=== PATIENT | female | born 1950 | race Caucasian/White ===

== ENCOUNTER 2025-02-01 13:11 | Outpatient (AMB) | payer MEDICARE, SELFPAY ==
--- OUTSIDE RECORDS SUMMARY | 2023-09-10 04:30 | XMS_ITS ---
Author Organization [facility] [place] Address [address] [place] [address] Care Team Providers Care Refinery Operator Helper Name Role Phone Pino ADAMSON, Iraida Primary Care Provider Unavailable Samir Mccauley [phone] Encounters Encounter Location Date Provider Diagnosis [facility] [address] [address] 09/10/2023 Samir Mccauley Plan Of Treatment No Information Progress Notes * Sarah COLLADODOB:1950 (74 yo F)Acc No.[id number]:09/10/2023 Progress Notes Patient: Sarah MCMILLAN Provider: Brad Caruso DPM :1950 A ge:72 Y S ex:Female Date:09/10/2023 Address:[address] [place] [address] Pcp:Iraida Pringle MD Subjective: * Chief Complaints: * * Medical History: Objective: * Vitals: Assessment: Plan: * Treatment: * Images: * The named appointment provid er may or may not be the originator of this progress note, and it is not deemed complete until electronically signed by the appointment provider. Sign off status: Pending * Provider: Brad Caruso DPM Date: 0 09/10/2023 Generated for Debbie beebe/Douglas/Rennyransmitting on: 04/03/2024 04:32 PM EST
--- OUTSIDE RECORDS SUMMARY | 2024-11-30 09:00 | XMS_ITS ---
Author Organization [facility] Address [address] [address] Care Team Providers Care Loss Prevention Investigator Name Role Phone Iraida Pringle Primary Care Provider Un available MOHAN YE Unavailable [phone] REASON FOR VISIT Lt foot bump concern, bump causes discomfort that comes and goes. Encounters Encounter Location Date Provider Diagnosis [facility] [address] [address] 11/30/2024 MOHAN YE Plan Of Treatment No Information Progress Notes * Sarah COLLADODOB:1950 (74 yo F)Acc No.[id number]:11/30/2024 Progress Note Patient: Kody CRAWFORD Sarah Provider: Nohemy Schuler DPM :1950 A ge:74 Y S ex:Female Date:11/30/2024 Phone: Address:[address] [place] [address] [facility] Pcp:Iraida Pringle Subjective: * Chief Complaints: * 1 . Lt foot bump concern, bump causes discomfort that comes and goes.. * Medical History: Objective: * Vitals: Assessment: Plan: * Treatment: * Billing Information: * Visit Code: * Procedure Codes: * Electronic signature of Alvaro PARKERPRajMRaj on 02/01/2025 at 04:32 PM EST Sign off status: Pending * Provider: Nohemy Schuler DPM Date: 0 11/30/2024 Generated for Printi ng/Faxing/eTransmitting on: 1 04/03/2024 04:32 PM EST
--- NOTE | 2025-02-01 13:15 | A.PHYSOV ---
Vital Signs 02/01/25 13:19 Height 5 ft 1 in Weight 145 lb BMI 27.4 Intake Visit Reasons: MRI FUV-SCANNED Intake Note: Patient is a 74 year old female in the office to discuss Lumbar Spine Mri results Field Liability Generalist Required: No Allergies Opioids - Morphine Analogues Allergy (Unknown, Verified 02/01/25 13:16) Unknown sulfamethoxazole Allergy (Unknown, Verified 02/01/25 13:16) Unknown HPI Comments Details: History of Present Illness The patient is a 74-year-old female presenting with lower back pain with radicular symptoms to the right leg and foot. The pain has been persistent and severe, particularly with standing and walking, and has been ongoing since at least 2018 when an MRI showed compression of the right L5 nerve root. She underwent a right L5 transforaminal injection on April 23, 2024, which provided complete pain relief for one month before the pain returned to pre-injection levels. The patient has also engaged in physical therapy with moderate benefit, although the pain persisted. A recent MRI on January 03, 2025, revealed mild to moderate right foraminal and lateral recess stenosis at the L4-L5 level and facet arthropathy at the L5-S1 level. Additionally, the patient experienced a fall on December 22, 2024, resulting in a rib fracture. Interestingly, since the fall, she reports no pain in her lower back, which may be due to the distraction caused by the rib pain or a possible realignment of the joint during the fall. Pain Description - Onset: Persistent since at least 2018 - Quality: Severe, particularly with standing and walking - Location: Lower back with radiation to the right leg and foot - Exacerbating factors: Standing and walking - Relieving factors: Right L5 transforaminal injection provided temporary relief Results - MRI (2018): Compression of the right L5 nerve root - MRI (January 03, 2025): Mild to moderate right foraminal and lateral recess stenosis at L4-L5; Facet arthropathy at L5-S1 [facility] Medical History Cataract (lens) fragments in eye following cataract surgery, bilateral Surgical History History of external ear surgery (Unknown) History of cataract extraction (Unknown) History of pubovaginal sling (Unknown) History of tonsillectomy (Unknown) History of knee replacement (Unknown) History of hysterectomy (Unknown) Social History Household Members: None Alcohol intake: never Patient Tobacco Use Status: Never used Tobacco Use of substances other than those prescribed or required for medical reasons: No Review of Systems Narrative Review of Systems - Musculoskeletal: Reports severe pain with standing and walking; Denies current lower back pain Physical Exam Exam Exam: Physical Exam - Musculoskeletal: Patient was able to stand and walk without difficulty Nonantalgic gait. Tenderness with palpation over right SI sulcus. Neurological examination lower extremities was nonfocal. Patient demonstrated an upper motor neuron signs. The site provocative maneuvers were negative today. Dural tension signs were negative. She was able to perform heel walk and toe walk. Vital Signs: BMI result Body Mass Index 27.4 Assessment & Plan Assessment & Plan (1) Lumbar radiculitis: Code(s): M54.16 - Radiculopathy, lumbar region Category: Medical (2) Sacroiliac dysfunction: Code(s): M53.3 - Sacrococcygeal disorders, not elsewhere classified Category: Medical Plan Pain Management - Affect: Pain impacts standing and walking ability - Analgesia: Right L5 transforaminal injection provided 100% pain relief for one month - Activities of Daily Living: Pain interferes with standing and walking Plan Patient was informed and verbally consented to the use of an ambient scribe for clinic note documentation during this visit. 1. Lower Back Pain With Radicular Symptoms The patient's lower back pain with radicular symptoms has been managed with right L5 transforaminal injections, which provided temporary relief. The recent MRI findings of mild to moderate right foraminal and lateral recess stenosis at L4-L5 and facet arthropathy at L5-S1 were discussed, and no further immediate interventions were deemed necessary as the patient currently reports no pain. We could consider sacroiliac joint injections in the future if necessary. It appears that she self corrected SI joint dysfunction with the fall. 2. Rib Fracture The rib fracture sustained from a fall on December 22, 2024, is expected to heal with time, and no specific treatment was recommended beyond monitoring for pain management. Discussion Notes The MRI results were reviewed with the patient, highlighting the findings of mild to moderate right foraminal and lateral recess stenosis at L4-L5 and facet arthropathy at L5-S1. It was explained that the current lack of pain might be due to the rib fracture acting as a distraction or a possible realignment of the joint during the fall. The patient was advised that no further immediate interventions are necessary, and the rib fracture should heal with time. Patient Instructions - Monitor rib pain and seek care if it worsens or does not improve. - No need for immediate follow-up unless symptoms return. Coding Level of Care Code Est Pt Level 3 (63268) Complex EM visit Add On G2211 Diagnoses Lumbar radiculitis M54.16 Sacroiliac dysfunction M53.3
[2025-02-01 13:19] VITALS: BMI 27.4
--- OUTSIDE RECORDS SUMMARY | 2025-02-01 16:32 | XMS_ITS | Patient Health Record ---
Author Organization [facility] Address [address] [place] [address] Care Team Providers Care Diamond Sawer Name Role Phone Pino ADAMSON, Iraida Primary Care Provider Unavailable Samir Mccauley Unavailable [phone] Reason For Referral No Information Plan Of Treatment No Information Insurance Providers Payer Name Payer Address Payer Phone Subscriber Number Group Number Insured Name Patient Relationship to Insured Coverage Start Date Coverage End Date Medicare [facility] [address] [place] [address] [id number] Sarah Lindo Self - patient is the insured [facility] [address] [place] [address] [id number] Sarah Lindo Self - patient is the insured
--- OUTSIDE RECORDS SUMMARY | 2025-02-01 16:32 | XMS_ITS | Patient Health Record ---
Author Organization [facility] Address [address] [facility] [address] [place] [address] Care Team Providers Care Ad Compositor Name Role Phone GarcíaIraida Ball Primary Care Provider Un available MOHAN YE Unavailable [phone] Allergies Allergen (clinical drug ingredient) Drug/Non Drug Allergy documented on EMR Reaction Allergy Type Onset Date Status sulfamethoxazole Sulfamethoxazole Unknown Drug Allergy Active morphine Morphine Unknown Drug Allergy Active Reason For Referral No Information Medications Medication SIG (Take, Route, Frequency, Duration) Notes Start Date End Date Status Atorvastatin Calcium 20 MG 1 tablet Orally Once a day Active amLODIPine Besylate 10 MG 1 tablet Orally Once a day Active Aspirin 81 MG 1 tablet Orally Once a day Active Alendronate Sodium 70 MG 1 tablet 30 minutes before the first food, beverage or medicine of the day with plain water Orally once a week Not-Taking Myrbetriq 25 MG 1 tablet Orally Once a day Active Multivitamin - 1 tablet Orally Once a day Active Fluticasone Propionate 50 MCG/ACT 1 spray in each nostril Nasally Once a day PRN Active CoQ10 100 MG as directed Orally Active Citracal Calcium+D A ctive buPROPion HCl ER (SR) 150 MG 1 tablet in the morning Orally Once a day Not-Taking Vitamin D3 125 MCG (5000 UT) 1 capsule Orally Once a day Active Tylenol Extra Strength 500 MG 1 tablet as needed Orally every 6 hrs Not-Taking Triamcinolone Acetonide 0.1 % 1 application Externally Two times a Week PRN Active Naproxen 500 MG 1 tablet with food or milk as needed Orally every 12 hrs Not-Taking Omeprazole 20 MG 1 capsule 30 minutes before morning meal Orally Once a day Active Problems Problem Type SNOMED Code ICD Code Onset Dates Problem Status W/U Status Risk Notes Problem Mononeuropathy of lower limb (522701991) Peripheral neuritis of right foot (G57.91) Active confirmed Problem Localized, primary osteoarthritis of the ankle and/or foot (114537542) 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) Active confirmed Vital Signs Heart Rate 74 /min 12/25/2024 Temperature 96.6 degrees Fahrenheit 12/25/2024 Respiratory Rate 16 /min 12/25/2024 Height 5ft 2in in 12/25/2024 Weight 149.4 lbs 12/25/2024 BMI 27.32 kg/m2 12/25/2024 Encounters Encounter Location Date Provider Diagnosis [facility] [address] [address] 12/25/2024 MOHAN YE Arthritis of left midfoot M19.072 and Left foot pain M79.672 [facility] [address] [address] 11/28/2024 MOHAN YE Assessments Encounter Date Diagnosis (ICD Code) Assessment Notes Treatment Notes Treatment Clinical Notes Section Notes 12/25/2024 Left foot pain (ICD-10 - M79.672) 12/25/2024 Arthritis of left midfoot (ICD-10 - M19.072) Patient examined and evaluated. Past medical history reviewed. She has been having dorsal lateral left foot pain intermittently. She brings her CT disc in that she had done recently at [facility]. This does show degenerative changes at the 4th and 5th TMTJ area and questionable old anterior process calcaneal fracture. I discussed with her the changes and options of treatment. We discussed voltaren gel to the area twice a day, oral NSAIDs, corticosteroid injections and stiff soled shoe gear. I went over what to look for in a shoe that would be better supportive. I also encouraged icing and heat on and off. She expressed understanding and will start with voltaren and shoe gear changes. She will let me know if the pain persists or worsens in the future. Plan Of Treatment Pending Test Test Name Order Date X ray : Foot, left 3v 10/20/2023 X ray : Foot, right 3v 06/29/2023 Insurance Providers Payer Name Payer Address Payer Phone Subscriber Number Group Number Insured Name Patient Relationship to Insured Coverage Start Date Coverage End Date [employer] of [place] [address] [place] [phone] [id number] Sarah Lindo Self - patient is the insured [facility] [address] [place] [address] [phone] [id number] Sarah Lindo Self - patient is the insured Medical (General) History Medical History History ICD Code chronic depression migraine osteoporosis stress incontinence esophagitis spondylosis hypertension hypercholesterolemia stricture of esophagus overactive bladder osteoarthritis of knee basal cell carcinoma on her nose + COVID 2020 COVID vaccinated X 3 ([employer]) Lower back pain with right sciatica Surgical History Surgery Date(Month/Year) mid urethral sling 2013 stapes surgery 2004 tonsillectomy total hysterectomy left knee arthroscopy left knee replacement right ear surgery Hospitalization History Reason Date(Month/Year) vaginal delivery (boy) 1972 total hysterectomy
--- OUTSIDE RECORDS SUMMARY | 2025-02-01 16:32 | XMS_ITS | Data Portability ---
Author Organization [place] - [facility], Allergy Address [address] [place] [phone] Care Team Providers Care Line Up Machine Operator Name Role Phone ADRIANA TAMAYO Referring Provider Assessment Encounter Date Assessment Date Assessment LastModified by Organization Details LastModified Time 02/22/2024 02/22/2024 73-year-old female presents for evaluation of hearing loss. Cerumen removed bilaterally without difficulty. Otologic exam is unremarkable. Audiometric testing obtained today showing mild high-frequency sensorineural hearing loss bilaterally which is symmetrical. This is stable when compared to results obtained after surgery. Results were reviewed with patient and reassurance was provided. Likely related to cerumen impaction. Offered 6 months follow-up for cerumen removal but she declined stating she will call if she has any further difficulty. All questions were answered. [email or web address] Not available 02/22/2024 12:28:17 Plan of Treatment Reminders Order Date Submit Date Provider Last Modified By Organization Details Last Modified Time Details Appointments None record ed. Lab None record ed. Referral None record ed. Procedures None record ed. Surgeries None record ed. Imaging None record ed. Medication Orders None record ed. Patient TargetsNo targets recorded. Patient InstructionsNo instructions recorded. Reason for Referral None Reported. Results Created Date Observation Date Name Description Value Unit Range Abnormal Flag Note LastModifiedBy Organization Detail LastModifiedTime 02/22/20 24 audio gram No observ ation record ed. BARCODE Not Available 2023 13:49:01 Result Notes None recorded. Problems Name Problem SNOMED Code Status Onset Date Resolution Date Notes Provider Name and Address Organization Details Recorded Time Hypertro phy of nasal turbinat es 39578000 Active 2017 Hypertro phy of nasal turbinat es; Note: Date Diagnose d: 8 9:39 AM (J34.3) Not Available [facility] 4 02:47:56 Choleste atoma of right mastoid [id number] 14951 Completed 201710/22/2023 Choleste atoma of mastoid, right ear; Note: Date Diagnose d: 8 10:36 AM (H71.21) Not Available [facility] 4 02:47:53 Sensorin eural hearing loss of bilatera l ears 176026634 Active 2017 Sensorin eural hearing loss, bilatera l; Note: Date Diagnose d: 8 10:04 AM (H90.3) Not Available [facility] 4 02:47:55 Posterio r rhinorrh ea 69254482 Active 2017 Postnasa l drip; Note: Date Diagnose d: 8 9:35 AM (R09.82) Not Available [facility] 4 02:47:53 Partial loss of ear ossicles 06582993 Active 2017 Partial loss of ear ossicles , right ear; Note: Date Diagnose d: 8 10:37 AM (H74.321 ) Not Available [facility] 4 02:47:54 Vuong' s esophagu s 056822921 Active 2017 Vuong' s esophagu s NOS; Note: Date Diagnose d: 8 9:39 AM (K22.70) Not Available [facility] 4 02:47:52 Allergic rhinitis 41239359 Active 2017 Allergic rhinitis : Due to other allergen ; Note: Date Diagnose d: 8 9:28 AM (477.8) ; Start Date : 12/25/19 18 Peren nial allergic rhinitis ; Note: Date Diagnose d: 01/07/20 18 8:41 AM (J30.89) Not Available [facility] 4 02:47:54 Impacted cerumen of bilatera l ears 83810979176 70263 Active 2023 JANICE STEWARD PA-C [address] [facility],[place] [address], [place], [phone] , [facility] - [facility] 4 12:28:27 Problem Notes None recorded. Procedures Surgical History Date Name Laterality Status Provider Name and Address Organization Details Recorded Time 4 Air & Speech Audio with Tymps - 42036, 65925 & 76997 completed RAYO CORADO [address] [facility],[place] [address], [place], [phone], [facility] 02/22/2024 11:52:35 4 Cerumen removal without microscope bilat completed JANICE STEWARD PA-C [address] [facility],[place] [address], [place], [phone], [facility] 02/22/2024 12:27:32 Imaging Results None recorded. Procedure Notes None recorded. Medical Equipment None Reported. Allergies Allergen ID Allergen Name Allergen Category Reaction Reaction Severity Criticality Documentation Date Start Date Code Code System Note Provider Name and Address Organization Details Recorded Time 994834 morphine medicatio n nausea Not available Not available 08/03/2023 7052 RxNorm React ion: vomit ing;; Not Available [facility] 4 01:13:30 886408 sulfur medicatio n hives Not available Not available 08/03/2023 95065 RxNorm React ion: other react ion, Hives ; Not Available [facility] 4 01:13:31 Medications Name Sig Start Date Stop Date Status Note LastModified by Organization Details LastModified Time amoxicill in 500 mg capsule TAKE 4 CAPSULES BY MOUTH 1 HOUR PRIOR TO DENTAL APPT active Not Available Not Available No t Available bupropion HCl SR 150 mg tablet,12 hr sustained -release TAKE 1 TABLET BY MOUTH TWICE A DAY 02/21 completed Not Available Not Available Not Available acetamino phen 325 mg tablet TAKE 2 TABLETS BY MOUTH EVERY 6 HOURS NEEDED FOR PAIN FOR 14 DAYS 02/21 completed Not Available Not Available Not Available atorvasta tin 20 mg tablet TAKE 1 TABLET BY MOUTH EVERY DAY active Not Available Not Available No t Available prednison e 20 mg tablet TAKE 1 TABLET BY MOUTH EVERY DAY FOR 3 DAYS 02/21 completed Not Available Not Available Not Available alendrona te 70 mg tablet TAKE 1 TABLET BY MOUTH ONE TIME PER WEEK active Not Available Not Available No t Available amlodipin e 10 mg tablet TAKE 1 TABLET BY MOUTH EVERY DAY active Not Available Not Available No t Available benzonata te 100 mg capsule TAKE 1 CAPSULE BY MOUTH 3 TIMES PER DAY (COUGH) FOR 5 DAYS 02/21 completed Not Available Not Available Not Available doxycycli ne monohydra te 100 mg capsule TAKE 2 CAPSULE (ORAL) DAILY FOR 1 DAYS 02/21 completed Not Available Not Available Not Available omeprazol e 20 mg capsule,d elayed release TAKE 1 CAPSULE BY MOUTH EVERY DAY active Not Available Not Available No t Available ibuprofen 600 mg tablet TAKE 1 TABLET BY MOUTH EVERY 6 HOURS NEEDED FOR PAIN FOR 14 DAYS 02/21 completed Not Available Not Available Not Available multivita min capsule 2017 active Medicati on ID: [id number] B rand Name: multivit rodriguez Sen d Method: E-Prescr ibed Sub s Allowed: subs OK Medic ationGen ericName : multivit rodriguez Not Available Not Available Not Available fluticaso ne propionat e 50 mcg/actua tion nasal spray,luigi pension INHALE 1 SPRAY INTO EACH NOSTRIL ONCE DAILY FOR 90 DAYS active Not Available Not Available No t Available doxycycli ne hyclate 100 mg tablet TAKE 1 TABLET (ORAL) 2 TIMES PER DAY FOR 10 DAYS LIMITS SUN EXPOSURE WHILE ON THIS ANTIBIOT IC 02/21 completed Not Available Not Available Not Available amoxicill in 875 mg-potass ium clavulana te 125 mg tablet TAKE 1 TABLET BY MOUTH TWICE A DAY FOR 10 DAYS 02/21 completed Not Available Not Available Not Available oxycodone 5 mg tablet TAKE 1 TABLET (5 MG) BY MOUTH EVERY 6 HOURS FOR 3 DAYS NEEDED FOR PAIN 02/21 completed Not Available Not Available Not Available escitalop aaron 10 mg tablet TAKE 1 TABLET BY MOUTH EVERY DAY active Not Available Not Available No t Available Saline Nasal 0.65 % spray aerosol USE 2 SPRAYS IN LEFT NOSTRIL 4 TIMES A DAY FOR 30 DAYS NEEDED FOR CONGESTI ON active Not Available Not Available No t Available Vitamin D3 25 mcg (1,000 unit) capsule 2017 active Medicati on ID: [id number] B rand Name: Vitamin D3 Send Method: E-Prescr ibed Sub s Allowed: subs OK Medic ationGen ericName : Vitamin D3 Not Available Not Available Not Available EpiPen 0.3 mg/0.3 mL injection , auto-inje ctor Inject 1 pen injector intramus cularly single dose as needed 02/21 completed Medicati on ID: [id number] D uration Value: 180 Prescri bed By Name: Pedro Yadav nd Name: EpiPen S end Method: E-Prescr ibed Sub s Allowed: subs OK Medic ationGen ericName : EpiPen Not Available Not Available Not Available Active Q 200 mg capsule 12/24 completed Medicati on ID: [id number] R carmela: () Brand Name: Active Q Send Method: E-Prescr ibed Sub s Allowed: subs OK Medic ationGen ericName : Active Q Not Available Not Available Not Available Citracal Plus Bone Density Builder 300 mg-200 unit-13.5 mg tablet 2017 active Medicati on ID: [id number] B rand Name: Citracal + Bone Density Send Method: E-Prescr ibed Sub s Allowed: subs OK Medic ationGen ericName : Citracal + Bone Density Not Available Not Available Not Available Myrbetriq 25 mg tablet,ex tended release TAKE 1 TABLET BY MOUTH EVERY DAY active Not Available Not Available No t Available Vitals Date Recorded Body height Body mass index (BMI) Body weight Provider Name and Address Organization Details Last Updated DateTime 02/22/2024 153.67 cm 29.4 kg/m2 39141.63 g Donna Ward [place] - [facility] 02/22/2024 11:40:00 Social History None recorded. Functional Status None recorded. Mental Status None recorded. Family History Nothing Reported. Medical History Condition Response Cancer Y Anxiety Y Hypertension Y Depression Y Gynecological HistoryNo gynecological history recorded. Obstetrics History GPAL:G 0 P 0 0 0 0 Past Encounters Encounter ID Performer Location Encounter Start Date Encounter Closed Date Diagnosis/Indication Diagnosis SNOMED-CT Code Diagnosis ICD10 Code Diagnosis IMO Codes Diagnosis Note [id number] DALJIT ATWOOD PA-C [facility] [address] [place] [address] 02/22/2024 10:59:13 02/22/2024 15:07:51 Partial loss of ear ossicles 03009920 H74.321 Sensorineu ral hearing loss of bilateral ears 871989679 H90.3 Impacted c erumen of bilateral ears 5829073163 392617 H61.23 [id number] RAYO CORADO [facility] [address] [place] [address] 02/22/2024 11:50:58 02/23/2024 07:20:25 Sensorineural hearing loss of bilateral ears 419238755 H90.3 Right Ear:Normal hearing through 3K Hz sloping to a moderate SNHL with excellent speech discrimina tion.Type A tympanogra m.Left Ear:Normal hearing through 4K Hz sloping to a moderate SNHL with excellent speech discrimina tion.Type A tympanogra m. Health Concerns Section Related Observation LastModified by Organization Detai ls LastModified Time None Recorded Concern Status LastModified by Organization Details LastModified Time None Recorded Advance Directives Directive None Recorded Payers Insurance Date Sequence Insurance Name Policy Number Policy Choe Covered Member ID Choe Member ID Guarantor Name 02/22/2024 1 [place]: [employer] Sarah A Belgica [id number] Sarah A Belgica 02/22/2024 2 [facility] INDEMNITY PLAN (INDEMNITY) [id number] Sarah D Belgica [id number] Sarah A Belgica Notes Date Note Type Note Provider Name and Address Organization Details Recorded Time 02/22/2024 text/html ROS as noted in the HPI 73-year-old female presents for evaluation of hearing loss. History of stapes surgery with Dr. Russell. Has had some progressive hearing loss over the last year. JANICE STEWARD PA-C [address] [place] [address], [phone], [facility] - [facility] 02/22/2024 12:28:50 OBGyn Episode No OBEpisode recorded.
--- OUTSIDE RECORDS SUMMARY | 2025-02-01 16:32 | XMS_ITS | Data Portability ---
Author Organization [facility], OFFICE Address [address] [address] Assessment Encounter Date Assessment Date Assessment LastModified by Organization Details LastModified Time 10/06/2021 10/06/2021 We discussed the issues concerning Sarah's left knee. She had medial compartment arthrosis and her symptoms have not been appreciably improved by therapy, injections or arthroscopy. Arthroplasty is appropriate. Although her most advanced changes are in the medial compartment, I'd favor TKR vs unicompartmental arthroplasty. We discussed the issues related to that in a lot of detail today including the preoperative process, the operative techniques, less-invasive techniques, computer-assisted techniques, the types of implants, and the perioperative risks. In addition, we discussed the typical hospitalization course following surgery and reasonable expectations for recovery, outcome, activity level, and long-term followup This visit was conducted as a real-time telehealth interactive video visit during this ongoing pandemic. She was identified and consented to this telehealth visit. I spent a total of 25 minutes during this encounter. Greater than 50% of the time was devoted to counseling and coordinating care. This included reviewing records and pertinent studies, discussing diagnostic evaluation and workup, planning therapeutic interventions, and formulating the future disposition of care. sbm Not available 10/06/2021 11:43:54 03/02/2022 03/02/2022 Sarah is progressing well following elective LTKR. She's going to continue to progress to all reasonable activities as tolerated. This visit was conducted as a real-time telehealth interactive video visit during this ongoing pandemic. She was identified and consented to this telehealth visit. I spent a total of 15 minutes during this encounter. Greater than 50% of the time was devoted to counseling and coordinating care. This included reviewing records and pertinent studies, discussing diagnostic evaluation and workup, planning therapeutic interventions, and formulating the future disposition of care. sbm Not available 03/02/2022 16:06:57 06/10/2022 06/10/2022 Sarah is improvi ng but hasn't fully recovered. She still has symptoms. Her exam is not concerning. Her incision healed well, she has full extension, 118 degrees of flexion, stable ligaments and good patellofemoral tracking. Since she is improving, I expect that she'll continue to. Even so, I've recommended a CBC,ESR, CRP. We'll determine further treatment based on her clinical progress and lab results. sbm Not available 06/10/2022 15:08:14 Plan of Treatment Reminders Order Date Submit Date Provider Last Modified By Organization Details Last Modified Time Details Appointments None record ed. Lab None record ed. Referral None record ed. Procedures None record ed. Surgeries None record ed. Imaging None record ed. Medication Orders None record ed. Patient TargetsNo targets recorded. Patient InstructionsNo instructions recorded. Reason for Referral None Reported. Problems No Known Problems Procedures Surgical History Date Name Laterality Status Provider Name and Address Organization Details Recorded Time procedure on ear completed Jorge Alberto Pavon MD [address], [place], [address], [place] - [facility] 10/06/2021 11:39:35 Hysterectomy completed Jorge Alberto Pavon MD [address], [place], [address], [place] - [facility] 10/06/2021 11:39:46 Knee arthroscopy/surge ry completed Jorge Alberto Pavon MD [address], [place], [address], [place] - [facility] 10/06/2021 11:41:12 total replacement of left knee joint completed Jorge Alberto Pavon MD [address], [place], [address], [place] - [facility] 03/02/2022 16:01:43 Imaging Results None recorded. Procedure Notes None recorded. Medical Equipment None Reported. Allergies Allergen ID Allergen Name Allergen Category Reaction Reaction Severity Criticality Documentation Date Start Date Code Code System Note Provider Name and Address Organization Details Recorded Time 48579 morphine medicatio n Not available Not available Not available 10/02/2021 7052 RxNorm Donna Watkins stefan, [place] - [facility] 2 10:30:52 79991 Substance with sulfonami de structure and antibacte rial mechanism of action (substanc e) medicatio n Not available Not available Not available 10/02/2021 38517 8003 SNOMED Donna Watkins stefan [place] - [facility] 2 10:31:00 Medications Name Sig Start Date Stop Date Status Note LastModified by Organization Details LastModified Time celecoxib 200 mg capsule PLEASE SEE ATTACHED FOR DETAILED DIRECTIONS active Not Available Not Available N ot Available atorvastatin 20 mg tablet TAKE 1 TABLET BY MOUTH EVERY DAY active Not Available Not Available No t Available erythromycin 500 mg tablet TAKE 2 TABLET 1HR PRIOR TO DENTAL WORK active Not Available Not Available Not Available benzonatate 200 mg capsule TAKE 1 CAPSULE BY MOUTH THREE TIMES A DAY NEEDED active Not Available Not Available No t Available ondansetron HCl 4 mg tablet TAKE 2 TABLET(S) 2 TIMES A DAY BY ORAL ROUTE. NEEDED FOR NAUSEA active Not Available Not Available No t Available prednisone 20 mg tablet TAKE 2 TABLETS BY MOUTH EVERY DAY FOR 5 DAYS active Not Available Not Available No t Available alendronate 70 mg tablet TAKE 1 TABLET BY MOUTH ONE TIME PER WEEK active Not Available Not Available No t Available amlodipine 2.5 mg tablet TAKE 1 TABLET BY MOUTH EVERY DAY active Not Available Not Available No t Available amlodipine 5 mg tablet TAKE 1 TABLET BY MOUTH EVERY DAY active Not Available Not Available No t Available triamcinolon e acetonide 0.1 % topical cream APPLY TWICE DAILY, NEEDED TO DERMATITIS ON LEGS active Not Available Not Available No t Available amoxicillin 875 mg tablet TAKE 1 TABLET BY MOUTH EVERY 12 HOURS FOR 7 DAYS active Not Available Not Available N ot Available amlodipine 10 mg tablet TAKE 1 TABLET BY MOUTH EVERY DAY active Not Available Not Available No t Available albuterol sulfate HFA 90 mcg/actuatio n aerosol inhaler INHALE 2 PUFFS EVERY 4 HOURS BY INHALATION ROUTE NEEDED active Not Available Not Available No t Available betamethason e dipropionate 0.05 % topical ointment APPLY A THIN LAYER TO THE AFFECTED AREA(S) BY TOPICAL ROUTE TWICE DAILY UNTIL CLEAR active Not Available Not Available No t Available naproxen 500 mg tablet TAKE 1 TABLET BY MOUTH TWICE A DAY 2022 active Not Available Not Available Not Avai lable oxycodone 5 mg tablet TAKE 1 TABLET BY MOUTH EVERY 8 HOURS active Not Available Not Available No t Available GaviLyte-G 236 gram-22.74 gram-6.74 gram-5.86 gram oral solution TAKE 4000 ML DIRECTED FOLLOW INSTRUCTION S PROVIDED TO YOU BY DOCTORS OFFICE active Not Available Not Available No t Available Eliquis 2.5 mg tablet Take 1 tablet(s) 2 TIMES A DAY by oral route for 30 days after surgery 2022 active Not Available Not Available Not Avai lable QuickVue At-Home COVID-19 Test kit USE ACCORDING TO CHEMA S DIRECTIONS active Not Available Not Available N ot Available Paxlovid 300 mg (150 mg x 2)-100 mg tablets in a dose pack TAKE 3 TABLETS BY MOUTH TWICE A DAY FOR 5 DAYS active Not Available Not Available No t Available Vitals Date Recorded Body height Body mass index (BMI) Body weight Systolic And Diastolic Provider Name and Address Organization Details Last Updated DateTime 06/10/2022 154.94 cm 26.5 kg/m2 91913.93 g 142/78 mm[Hg] Donna Watkins [place] - [facility] 06/10/2022 14:38:52 Date Recorded Body height Body mass index (BMI) Body weight Provider Name and Address Organization Details Last Updated DateTime 10/06/2021 154.94 cm 26.8 kg/m2 92153.12 g Donna Watkins [place] - [facility] 10/06/2021 07:06:26 Date Recorded Body height Body mass index (BMI) Body weight Provider Name and Address Organization Details Last Updated DateTime 03/02/2022 154.94 cm 25.5 kg/m2 28036.97 g Donna Watkins [place] - [facility] 03/02/2022 10:44:28 Social History Question Answer Notes LastModified by Organizat ion Details LastModified Time Tobacco Smoking Status Never Smoker Donna aviles [place] - [facility] 10/02/2021 10:33:03 Do You Have An Advance Directive? No [email or web address] Information not available 03/02/2022 Do You Have A Medical Power Of Spinner Fixer? No [email or web address] Information not available 03/02/2022 What Was The Date Of Your Most Recent Tobacco Screening? 03/02/2022 [email or web address] Information not available 03/02/2022 Has Tobacco Cessation Counseling Been Provided? No [email or web address] Information not available 03/02/2022 Sex: Unknown Functional Status Question Answer Note LastModified by Organization D etails LastModified Time Do you or have you ever used any other forms of tobacco or nicotine? No Information not available 10/02/2021 Are you able to care for yourself independently? Yes [email or web address] Information not available 10/02/2021 Mental Status None recorded. Family History Relationship Description Onset Age of this Age Resolved Age Notes LastModified by Organization Details LastModified Time Father Coronary arterioscler osis [email or web address] Not available 2021 11:37:33 Mother Malignant neoplasm of colon sbm Not available 2021 11:38:03 Medical History Condition Response Arthritis Y Hypertension Y High Cholesterol Y Gynecological HistoryNo gynecological history recorded. Obstetrics History GPAL:G 0 P 0 0 0 0 Past Encounters Encounter ID Performer Location Encounter Start Date Encounter Closed Date Diagnosis/Indication Diagnosis SNOMED-CT Code Diagnosis ICD10 Code Diagnosis IMO Codes Diagnosis Note [id number] Jorge Alberto Pavon MD [facility] [address] [place] [address] 10/06/2021 07:05:06 10/06/2021 22:03:02 [id number] Jorge Alberto Pavon MD [facility] [address] [place] [address] 03/02/2022 10:42:45 03/04/2022 12:35:02 [id number] Jorge Alber[facility] Pav[facility] MD OFFICE [facility] [address] [place] [phone] 06/10/2022 14:33:25 06/10/2022 20:39:51 Health Concerns Section Related Observation LastModified by Organization Detai ls LastModified Time None Recorded Concern Status LastModified by Organization Details LastModified Time None Recorded Advance Directives Directive N: Payers Insurance Date Sequence Insurance Name Policy Number Policy Choe Covered Member ID Choe Member ID Guarantor Name 06/07/2022 1 [place] [employer] Sarahlupillo Espinosao [id number] 2 Sarah Belgica 06/10/2022 2 UNICARE - SENIOR SERVICES PLAN F (MEDICARE SUPPLEMENT) [id number] Sarah Hal Espinosao [id number] Sarah Belgica 06/07/2022 [place] NATIONAL GOVERNMENT SERVICES Sarahlupillo Espinosao [id number] 2 Sarah Belgica Notes Date Note Type Note Provider Name and Address Organization Details Recorded Time 10/06/2021 text/html KneeReported by PatientHPIFor location, patient reportsleft,medial, anddeep. For severity, patient reportsmoderate. For alleviating factors, patient reportsrest. For aggravating factors, patient reportswalking,weig ht bearing,going from sit to stand,upstairs, anddownstairs. For associated symptoms, patient reportsno weakness,no numbness,no tingling,no swelling,no redness,no warmth,no ecchymosis,no catching/locking,no popping/clicking,no buckling,no grinding,no instability,no radiation down leg,no drainage,no fever,no chills,no weight loss, andno change in bowel/bladder habits. For previous injections, patient reportshelped temporarily. For previous pt, patient reportsdid not help. For previous surgery, (knee arthroscopy. didn't help).ROS as noted in the HPI Jorge Alberto Pavon MD [address] [place] [address], [phone], [place] - [facility] 10/06/2021 11:43:57 03/02/2022 text/html KneeReported by PatientHPIFor location, patient reportsleftanddeep. For severity, patient reportsmoderate. For alleviating factors, patient reportsiceandrest. For aggravating factors, patient reportsexercise. For associated symptoms, patient reportsno weakness,no numbness,no tingling,no swelling,no redness,no warmth,no ecchymosis,no catching/locking,no popping/clicking,no buckling,no grinding,no instability,no radiation down leg,no drainage,no fever,no chills,no weight loss, andno change in bowel/bladder habits. For prior imaging, patient reportsx rayandmri. For previous pt, patient reportshelped significantly.ROS as noted in the [facility] Jorge Alberto Pavon MD [address], [place], [address], [place] - [facility] 03/02/2022 16:07:01 06/10/2022 text/html KneeReported by PatientHPIFor location, patient reportsleftanddeep. For severity, patient reportsmild. For alleviating factors, patient reportsiceandrest. For aggravating factors, patient reportsexercise. For associated symptoms, patient reportsno weakness,no numbness,no tingling,no swelling,no redness,no warmth,no ecchymosis,no catching/locking,no popping/clicking,no buckling,no grinding,no instability,no radiation down leg,no drainage,no fever,no chills,no weight loss, andno change in bowel/bladder habits. For prior imaging, patient reportsx rayandmri.ROS as noted in the [facility] Jorge Alberto Pavon MD [address], [place], [address], [place] - [facility] 06/10/2022 15:08:17 OBGyn Episode No OBEpisode recorded.
--- OUTSIDE RECORDS SUMMARY | 2025-02-01 16:32 | XMS_ITS | Clinical Summary ---
Author Organization [facility] [address] [facility] Address [address] [place] [address] Phone Care Team Providers Care Timber Supervisor Name Role Phone Iraida Pringle MD Primary Care Provid er Allergies Active Allergy Reactions Criticality Noted Date Comments Morphine Nausea Only,Nausea A nd Vomiting 11/01/2024 morphine Sulfa (Sulfonamide Antibiotics) Hives 11/01/2024 Medications alendronate (FOSAMAX) 70 mg tablet Take 1 tablet (70 mg total) by mouth 1 (one) time per week. 06/09/2024 Active amLODIPine (NORVASC) 5 mg tablet Take 1 tablet (5 mg total) by mouth 1 (one) time each day. 10/18/2024 Active amoxicillin (AMOXIL) 500 mg capsule TAKE 4 CAPS BY MOUTH PRIOR TO DENTAL WORK 06/12/2024 Active aspirin 81 mg EC tablet Take 1 tablet (81 mg total) by mouth 1 (one) time each day. 09/14/2024 Active atorvastatin (LIPITOR) 40 mg tablet Take 1 tablet (40 mg total) by mouth 1 (one) time each day. 10/18/2024 Active DULoxetine (CYMBALTA) [address] capsule Take 1 capsule (30 mg total) by mouth 1 (one) time each day. 05/22/2024 Active fluticasone propionate (FLONASE) 50 mcg/actuation nasal spray INHALE 1 SPRAY INTO EACH NOSTRIL ONCE DAILY FOR 90 DAYS 01/29/2024 Active losartan (COZAAR) 50 mg tablet Take 1 tablet (50 mg total) by mouth 1 (one) time each day. 10/18/2024 Active meloxicam (MOBIC) 15 mg tablet Take 1 tablet (15 mg total) by mouth 1 (one) time each day if needed. 10/26/2024 Active Myrbetriq 50 mg 24 hr tablet Take 1 tablet (50 mg total) by mouth 1 (one) time each day. 09/28/2024 Active escitalopram (LEXAPRO) 10 mg tablet Take 1 tablet (10 mg total) by mouth 1 (one) time each day. 12/24/2023 Active omeprazole (PriLOSEC) 20 mg capsuleIndestefany ns:Gastroesophag eal reflux disease without esophagitis Take 1 capsule (20 mg total) by mouth 1 (one) time each day. 90 each 3 11/01/2024 11/02/19 26 Active Active Problems Problem Noted Date Diagnosed Date Gastroesophageal reflux dise ase with esophagitis without hemorrhage 11/01/2024 Osteoporosis 11/01/2024 HTN (hypertension) 11/01/2024 Esophageal stricture 11/01/2024 Allergies 11/01/2024 Basal cell carcinoma 11/01/2024 Migraines 11/01/2024 Encounters Date Type Department Care Team Description 11/01/2024 2:40 PM EDT Office Visit Gastroenterology - [address] [facility] [address] [place] [phone] Tino Nichols PA Esophageal dysphagia (Primary Dx); Gastroesophageal reflux disease without esophagitis from Last 3 Months Surgical History Surgery Date Site/Laterality Comments TOTAL KNEE ARTHROPLASTY 03/22/2021 - 03/21/2022 Left HYSTERECTOMY COLONOSCOPY 07/20/2022 - 08/19/2022 (5yr)/hx polyps & fam hx CRC (Dr. Connolly) ESOPHAGOGASTRODUODENOSCOPY 05/20/2017 - 06/19/2017 esoph stricture dilated/no heme, grade A esophagitis - Dr. Connolly ESOPHAGOGASTRODUODENOSCOPY 07/20/2018 - 08/19/2018 ? 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 Connolly Family History Medical History Relation Name Comments Colon cancer Mother Relation Name Status Comments Mother Social History Tobacco Use Types Packs/Day Years Used Date Smoking Tobacco: Never Assessed Smokeless Tobacco: Never Tobacco Cessation:Counseling Given: No Comments Unknown Sex and Gender Information Value Date Recorded Sex Assigned at Female 09/12/2024 3:09 PM EDT Legal Sex Female 8:27 PM EST Gender Identity Female 09/12/2024 3:09 PM EDT Sexual Orientation Not on file Obstetrics History Last Filed Vital Signs Vital Sign Reading Time Taken Comments Blood Pressure - - Pulse 92 11/01/2024 2:33 PM EDT Temperature - - Respiratory Rate - - Oxygen Saturation 93% 11/01/2024 2:33 PM EDT Inhaled Oxygen Concentration - - Weight 68.8 kg (151 lb 9.6 oz) 11/01/2024 2:33 P M EDT Height 154.9 cm (5' 1 ) 11/01/2024 2:33 PM EDT Body Mass Index 28.64 11/01/2024 2:33 PM EDT Plan of Treatment Health Maintenance Due Date Last Done Comments DTaP,Tdap,and Td Vaccines (1 - Tdap) 09/12/1967 Pneumococcal Vaccine: 50+ Ye ars (1 of 1 - PCV) 1998 Zoster Vaccines (1 of 2) 1998 Cholesterol Screening (Lipid Panel) 04/16/2023 Falls Risk Assessment 04/16/2023 Hepatitis C Screening 04/16/2023 Medicare Annual Wellness Visit 04/16/2023 Osteoporosis Screening (Bone Density Screening) 04/16/2023 Social Influencers of Health Screening 04/16/2023 RSV Immunization Adult Patie nts (1 - 1-dose 75+ series) 09/12/2023 Depression Screening 03/22/2024 Hypertension/CHF/CAD Annual BMP Blood Test 11/01/2024 COVID-19 Vaccine ( - 2024-2 6 season) 2024 Influenza Vaccine (#1) 2024 Colorectal Cancer Screening: Colonoscopy Discontinued 10/31/2024 HIB Vaccines Aged Out No longer eligi ble based on patient's age to complete this topic HPV Vaccines Aged Out No longer eligi ble based on patient's age to complete this topic Hepatitis A Vaccines Aged Out No long er eligible based on patient's age to complete this topic Hepatitis B Vaccines Aged Out No long er eligible based on patient's age to complete this topic IPV Vaccines Aged Out No longer eligi ble based on patient's age to complete this topic MMR Vaccines Aged Out No longer eligi ble based on patient's age to complete this topic Meningococcal ACWY Vaccine Aged Out N o longer eligible based on patient's age to complete this topic Meningococcal B Vaccine Aged Out No l onger eligible based on patient's age to complete this topic RSV Immunization Patients Un jaylen 20 months Aged Out No longer eligible b ased on patient's age to complete this topic Varicella Vaccines Aged Out No longer eligible based on patient's age to complete this topic Procedures Procedure Name Priority Date/Time Associated Diagnosis Comments COLONOSCOPY Routine 10/31/2024 1:44 PM EDT from Last 3 Months or Most Recently Relevant to Health Maintenance Results * COLONOSCOPY (10/31/2024 1:44 PM EDT) Anatomical Region Laterality Modality Endoscopy us Historical Provider GI~PROCEDURE ORDERABLES F inal Result from Last 3 Months or Most Recently Relevant to Health Maintenance [place] [address] MEDICARE UNICARE MEDICARE ADVANTAGE Care Teams Timber Supervisor Relationship Specialty Start Date End Date Iraida Pringle MD [address] [place] [address] PCP - General Endocrinology 09/12/24
--- OUTSIDE RECORDS SUMMARY | 2025-02-01 16:33 | XMS_ITS | Continuity of Care Document ---
Author Organization [facility] [address] [place] [address] Phone [phone] Problems Active Problems Provider Date Chronic depression Iraida Pringle M.D. Onset: 12/22/2021 Migraine Iraida Pringle M.D. Ons et: 12/22/2021 Osteoporosis Iraida Pringle M.D. Ons et: 12/22/2021 Female stress incontinence Iraida hernández M.D. Onset: 12/22/2021 Esophagitis Iraida Pringle M.D. Ons et: 12/22/2021 Spondylosis Iraida Pringle M.D. Ons et: 12/22/2021 Essential hypertension Kathy Cunha Onset: 12/22/2021 Pure hypercholesterolemia Iraida Pringle M.D. Onset: 12/22/2021 Stricture of esophagus Kathy Cunha Onset: 12/22/2021 Overactive bladder Iraida Pringle M.D. Onset: 12/22/2021 Osteoarthritis of knee Kathy Cunha Onset: 12/22/2021 Basal cell carcinoma of skin Iraida blackwell M.D. Onset: 12/25/2022 Social History Type Date Description Comments Sex Female Sex Unknown Lives With Son Occupation Financial Analyst Work Status Retired ETOH Use Occasionally consumes alcoho l Tobacco Use Start: Unknown Patient has never smoked Smoking Status Reviewed: 06/23/24 Patient has never sm oked Allergies and adverse reactions Active Allergies Criticality Reaction Severity Comments Date Sulfamethoxazole Unable to assess criticality 12/22/2021 Morphine Unable to assess criticality 12/22/2021 Medications Active Medications SIG Qnty Indications Order ing Provider Date Amlodipine Gpvcfrzh0bd Tablets 1 by mouth every day 90tabs Iraida Pringle M.D. 10/18/2024 Losartan [id number] Tablets 1 by mouth every day in evening 90tabs Iraida Pringle M.D. 10/18/2024 Atorvastatin Cmwndfm16ve Tablets Take 1 Tablet By Mouth Every Day 90tabs Iraida Pringle M.D. 09/25/2024 Aspirin 81 Low Shgf67mu Chewtabs 1 tabs by mouth every day Iraida Pringle M.D. 09/25/2024 [id number] Capsules Take 4 Caps By Mouth Prior To Dental Work 8caps Iraida Pringle M.D. 12/25/2022 Triamcinolone Acetonide0.1% Cream Apply Twice Daily, as Needed To Dermatitis On Legs Unknown Multivitamin Womens 50+ AdvancedTablets 1 by mouth every day Iraida Pringle M.D. Vitamin O0292uke (5000 Ut) Capsules 3 by mouth every week Iraida Pringle M.D. Citracal Calcium+D Slow [id number]- Unit Tablets ER 24HR 1 by mouth every day Iraida Pringle M.D. [id number] Capsules 1 by mouth every day Iraida Pringle M.D. Fluticasone Propionate Nasal [place] 24- Rssu69zue/Act Suspension 2 sprays each nostril every am prn Iraida Pringle M.D. Ggnmxxjres33ok Capsules DR 1 by mouth every day Iraida Pringle M.D. Jftixsjma75cw Tablets ER 24HR 1 by mouth every day Unknown History Medications Duloxetine [id number] Caps DR Gail 1 by mouth once a day 90capmarita randhawa M.D. 03/01/2024 - 10/18/2024 Vital Signs Date Vital Result Comment 10/18/2024 1:43pm BP Systolic 130 mmHg BP Diastolic 68 mmHg Heart Rate 78 /min Height 61 inches 5'1 Weight 148.50 lb BMI (Body Mass Index) 28.1 kg/m2 Results Test Acquired Date Facility Test Result H/L Range Note Triiodothyronine (T3), Free 5 [facility] Triiodothyronine (T3), Free <pending> Thyroid Peroxidase (Tpo) AB 5 [facility] Thyroid Peroxidase (Tpo) AB <pending> TSH RFX On Abnormal To Free T4 5 [facility] TSH RFX On Abnormal To Free T4 <pending> Basic Metabolic Panel (8) 5 [facility] Glucose 99 mg/dL 70-99 BUN 12 mg/dL 8-27 Creatinine 0.56 mg/dL Low 0.57-1.00 eGFR 95 mL/min/1. 73 >59 BUN/Creatinine Ratio 21 12-28 Sodium 141 mmol/L 134-144 Potassium 4.1 mmol/L 3.5-5.2 Chloride 101 mmol/L 96-106 Carbon Dioxide, Total 23 mmol/L 20-29 Calcium 9.3 mg/dL 8.7-10.3 Lipid Panel 5 [facility] Cholesterol, Total 222 mg/dL High 100-199 Triglycerides 229 mg/dL High 0-149 HDL Cholesterol 65 mg/dL >39 VLDL Cholestero l [place] 39 mg/dL 5-40 LDL Chol Calc ([facility]) 118 mg/dL High 0-99 LDL Calc Comment: TNP Lyme Disease Serology w/Reflex 5 [facility] Lyme Disease Serology w/Reflex Negative Negative 1 Lyme Disease Serology W/Reflex 5 [facility] Lyme Disease Serology W/Reflex <pending> Urinalysis, Complete 4 [facility] Specific [place] 1.016 1.005-1.0 30 pH 6.5 5.0-7.5 Urine-Color Yellow Yellow Appearance Clear Clear WBC Esterase Trace Abnormal Negative Protein Trace Negative/ Trace Glucose Negative Negative Ketones Negative Negative Occult Blood Negative Negative Bilirubin Negative Negative Urobilinogen,Se mi -Qn 0.2 mg/dL 0.2-1.0 Nitrite, Urine Negative Negative Microscopic Examination See below: 2 Microscopic Examination TNP WBC None seen /hpf 0 - 5 RBC 0-2 /hpf 0 - 2 Epithelial Cell s (non renal) 0-10 /hpf 0 - 10 Epithelial Cell s (renal) TNP Casts None seen /lpf None seen Cast Type TNP Crystals TNP Crystal Type TNP Mucus Threads TNP Bacteria None seen None seen/Few Yeast TNP Trichomonas TNP Comment TNP Vitamin D, 25-Hydroxy 4 [facility] Vitamin D, 25-Hydroxy 30.8 ng/mL 30.0-100. 0 3 CBC With Differential/Plat elet 4 [facility] WBC 5.6 x10E3/uL 3.4-10.8 RBC 4.85 x10E6/uL 3.77-5.28 Hemoglobin 13.6 g/dL 11.1-15.9 Hematocrit 41.4 % 34.0-46.6 MCV 85 fL 79-97 MCH 28.0 pg 26.6-33.0 MCHC 32.9 g/dL 31.5-35.7 RDW 13.4 % 11.7-15.4 Platelets 341 x10E3/uL 150-450 Neutrophils 68 % Not Estab. Lymphs 20 % Not Estab. Monocytes 9 % Not Estab. Eos 2 % Not Estab. Basos 1 % Not Estab. Immature Cells TNP Neutrophils (Absolute) 3.8 x10E3/uL 1.4-7.0 Lymphs (Absolute) 1.1 x10E3/uL 0.7-3.1 Monocytes(Absol ut e) 0.5 x10E3/uL 0.1-0.9 Eos (Absolute) 0.1 x10E3/uL 0.0-0.4 Baso (Absolute) 0.0 x10E3/uL 0.0-0.2 Immature Granulocytes 0 % Not Estab. Immature Grans (Abs) 0.0 x10E3/uL 0.0-0.1 NRBC TNP Hematology Comments: TNP Lipid Panel 4 [facility] Cholesterol, Total 221 mg/dL High 100-199 Triglycerides 233 mg/dL High 0-149 HDL Cholesterol 69 mg/dL >39 VLDL Cholestero l Blane 40 mg/dL 5-40 LDL Chol Calc ([facility]) 112 mg/dL High 0-99 LDL Calc Comment: TNP Comp. Metabolic Panel (14) 4 [facility] Glucose 90 mg/dL 70-99 BUN 12 mg/dL 8-27 Creatinine 0.66 mg/dL 0.57-1.00 eGFR 91 mL/min/1. 73 >59 BUN/Creatinine Ratio 18 12-28 Sodium 142 mmol/L 134-144 Potassium 4.3 mmol/L 3.5-5.2 Chloride 102 mmol/L 96-106 Carbon Dioxide, Total 26 mmol/L 20-29 Calcium 9.3 mg/dL 8.7-10.3 Protein, Total 7.0 g/dL 6.0-8.5 Albumin 4.4 g/dL 3.8-4.8 Globulin, Total 2.6 g/dL 1.5-4.5 Bilirubin, Total 0.4 mg/dL 0.0-1 .2 Alkaline Phosphatase 120 IU/L 44-121 Ast (Sgot) 21 IU/L 0-40 Alt (SGPT) 21 IU/L 0-32 Complete Abc With Diff 3 [facility] WBC 5.4 K/MM3 (4.0-11.0 ) RBC 4.88 M/MM3 (4.20-5.4 0) HGB 13.2 GM/DL (11.7-15. 5) HCT 43.3 % (35.7-45. 8) MCV 88.7 FL (80.0-100 .0) MCH 27.0 pg (27.0-34. 0) MCHC 30.5 g/dL Low (33.0-37. 0) PLT 303 K/MM3 (150-460) RDW-SD 46.0 FL (<47.0) MPV 9.5 FL (9.4-12.4 ) Automated NRBC 0.0 #/100WBC' S Abs. NRBC 0.0 K/MM3 Neut # 3.7 K/MM3 (1.3-7.0) Lymph # 0.8 K/MM3 (0.8-3.1) Faulk# 0.6 K/MM3 (0.4-0.9) Eo # 0.2 K/MM3 (0.0-0.4) Baso # 0.0 K/MM3 (0.0-0.1) Abs. Imm Gran 0.0 K/MM3 Neut 69.7 % (44-76) Lymph 14.3 % Low (15-43) Monocyte 11.9 % High (4.5-10.5 ) Eo 2.8 % (0-6) Baso 0.6 % (0-2) Imm Gran 0.7 % 25Oh Vitamin D 3 [facility] 25Oh Vitamin D 35.7 NG/ML (20-50) Basic Metabolic Panel 3 [facility] Glucose 103 mg/dL High (70-99) BUN 13 mg/dL (8-23) Creatinine 0.7 mg/dL (0.5-1.0) Sodium 142 mmol/L (133-145) Potassium 4.5 mmol/L (3.6-5.2) Chloride 101 mmol/L (98-107) Bicarbonate 28 mmol/L (22-29) Anion Gap 13 (4-17) Calcium 9.8 mg/dL (8.6-10.5 ) Estimated GFR Creatinine 88 ML/MIN/1. 73M2 4 Xray 3 [facility] Mammography Screening Bilateral <pending> Xray 3 [facility] [phone] Dexa Bone Density Study Axial Skeleton <pending> Comprehensive Metabolic Panl 3 [facility] Glucose 116 mg/dL High (70-99) BUN 11 mg/dL (8-23) Creatinine 0.6 mg/dL (0.5-1.0) Sodium 142 mmol/L (133-145) Potassium 4.2 mmol/L (3.6-5.2) Chloride 101 mmol/L (98-107) Bicarbonate 32 mmol/L High (22-29) Anion Gap 9 (4-17) Albumin 4.9 GM/DL High (3.4-4.8) Calcium 9.8 mg/dL (8.6-10.5 ) Bilirubin,Total 0.4 mg/dL (0-1.2 ) Total Protein 6.9 GM/DL (6.2-8.2 ) Ag Ratio 2.5 Ast 18 U/L (0-32) Alk Phos 115 U/L High (35-104) Alt 20 U/L (0-33) Estimated GFR Creatinine 95 ML/MIN/1. 73M2 5 Lipid Panel 3 [facility] Cholesterol, Total 222 mg/dL High (<200) Triglyceride 219 mg/dL High (<150) HDL Chol 72 mg/dL (>39) LDL Cholesterol , Calculated 106 mg/dL (0-130) Non HDL Cholesterol (Calc) 150 mg/dL (<160) Complete Abc With Diff 3 [facility] WBC 5.7 K/MM3 (4.0-11.0 ) RBC 4.83 M/MM3 (4.20-5.4 0) HGB 13.5 GM/DL (11.7-15. 5) HCT 43.7 % (35.7-45. 8) MCV 90.5 FL (80.0-100 .0) MCH 28.0 pg (27.0-34. 0) MCHC 30.9 g/dL Low (33.0-37. 0) PLT 351 K/MM3 (150-460) RDW-SD 46.2 FL (<47.0) MPV 9.3 FL Low (9.4-12.4 ) Automated NRBC 0.0 #/100WBC' S Abs. NRBC 0.0 K/MM3 Neut # 3.9 K/MM3 (1.3-7.0) Lymph # 1.1 K/MM3 (0.8-3.1) Faulk# 0.5 K/MM3 (0.4-0.9) Eo # 0.2 K/MM3 (0.0-0.4) Baso # 0.0 K/MM3 (0.0-0.1) Abs. Imm Gran 0.0 K/MM3 Neut 67.7 % (44-76) Lymph 19.7 % (15-43) Monocyte 8.3 % (4.5-10.5 ) Eo 3.3 % (0-6) Baso 0.5 % (0-2) Imm Gran 0.5 % 25Oh Vitamin D 3 [facility] 25Oh Vitamin D 27.4 NG/ML (20-50) 1 Lyme antibodies not detected. Reflex testing is not indicated. No laboratory evidence of infection with B. burgdorferi (Lyme disease). Negative results may occur in patients recently infected (less than or equal to 14 days) with B. burgdorferi. If recent infection is suspected, repeat testing on a new sample collected in 7 to 14 days is recommended. 2 Microscopic was rafael cated and was performed. 3 Vitamin D deficiency has been defined by the [place] [employer] and an Endocrine Society practice guideline as a level of serum 25-OH vitamin D less than 20 ng/mL (1,2). The Endocrine Society went on to further define vitamin D insufficiency as a level between 21 and 29 ng/mL (2). 1. IOM ([place] [employer]). 2010. Dietary reference intakes for calcium and D. [place]: The National [employer]. 2. Elaine MF, Pascual NC, Angeli SCHULTZ, et al. Evaluation, treatment, and prevention of vitamin D deficiency: an Endocrine Society clinical practice guideline. JCEM. 2010; 96(7):1911-30. 4 Creatinine based est imated glomerular filtration (eGFR) in adults is calculated using the National Kidney Foundation recommended 2020 CKD-EPI equation. Estimates GFR from serum creatinine, age and sex. 5 Creatinine based est imated glomerular filtration (eGFR) in adults is calculated using the National Kidney Foundation recommended 2020 CKD-EPI equation. Estimates GFR from serum creatinine, age and sex. Procedures Date Code Description Status 10/18/2024 G0444 Annual Depression Screening, 15 Minutes Completed 12/25/2022 10733 Collection Of Venous Blood B y Venipuncture Completed 06/23/2022 21304 Collection Of Venous Blood B y Venipuncture Completed 12/22/2021 12903 Electrocardiogram Complete C ompleted Medical Devices Description No Information Available Encounters Type Date Location Provider Dx Diagnosis Office Visit 12/25/2024 2:24p Main Office Iraida Pringle M.D. I10 Essential (primary) hypertension E78.00 Pure hypercholestero lemia, unspecified Assessments Date Code Description Provider 12/25/2024 I10 Essential (primary) hyperten roberto Iraida Pringle M.D. 12/25/2024 E78.00 Pure hypercholesterolemia, u nspecified Iraida Pringle M.D. Plan of Treatment Future Appointment(s):* 03/23/2025 8:15 am - Iraida Pringle M.D. at Main Office 10/18/2024 - Iraida Pringle M.D.* Z00.01 Encounter for general adult medical examination with abnormal findings * Z13.31 Encounter for screening for depression * Z13.89 Encounter for screening for other disorder * Z71.89 Other specified counseling * Functional Status Description No Information Available Mental Status Description No Information Available Referrals Refer to Reason for Referral Status Appt Julien e [facility] Urinary Incontinence Closed 11/2022 [address], [address] [place] [address] [phone] [facility] RE[facility]ERR[facility] Closed [address] [place] [address] [phone]
== END 2025-02-01 13:46 | disposition home or self-care (01) ==
LOC: HO.HPHYS 13:11
PROVIDERS: Visit Provider Physical Medicine & Rehabilitation
DX: M54.16 Radiculopathy, lumbar region (principal); M53.3 Sacrococcygeal disorders, not elsewhere classified
CPT/HCPCS: 99213; G2211

== ENCOUNTER → 2025-02-01 13:11 | Outpatient (BNVA) | payer MEDICARE, SELFPAY | PROVIDERS: Visit Provider Physical Medicine & Rehabilitation | DX: M54.16 Radiculopathy, lumbar region (principal); M53.3 Sacrococcygeal disorders, not elsewhere classified | CPT/HCPCS: 99212 ==